=== PATIENT | male | born 1945 | race Caucasian/White ===

== ENCOUNTER 2021-10-24 20:40 | Emergency (ER) | payer MEDICARE ==
[2021-10-24] MEDS ORDERED: LIDOCAINE 1% 20 ML MDV ONE (21:08)
[2021-10-24] MEDS ORDERED: TETANUS & DIPHTHERIA TOX,ADULT 0.5 ML VIAL ONE (21:17)
--- NOTE | 2021-10-24 21:27 | ER ---
Nurse's Notes [facility] Name: Alexsander Eldridge Age: 76 yrs Sex: Male : 1945 Arrival Date: 10/24/2021 Time: 20:40 Bed 11 Private MD: Felix Hernandez E Diagnosis: Laceration without foreign body of right middle finger without damage to nail Presentation: 10/24 20:47 Chief complaint: Patient states: laceration to right middle finger. Coronavirus screen: da3 Vaccine status: Patient reports receiving the 2nd dose of the covid vaccine. Ebola Screen: No symptoms or risks identified at this time. Complicating Factors: blood thinner. Initial Sepsis Screen: Does the patient meet any 2 criteria? No. Patient's initial sepsis screen is negative. Does the patient have a suspected source of infection? No. Patient's initial sepsis screen is negative. Risk Assessment: Do you want to hurt yourself or someone else? Patient reports no desire to harm self or others. Onset of symptoms was October 24, 2021. 20:47 Method Of Arrival: Ambulatory da3 20:47 Acuity: MAGEN 3 da3 Triage Assessment: 20:50 General: Appears in no apparent distress. comfortable, Behavior is calm, cooperative. da3 Pain: Complains of pain in right hand Pain currently is 5 out of 10 on a pain scale. Injury Description: while pushing trash down into trash can finger sliced by can lid. 21:33 Injury Description: Laceration sustained to dorsal aspect of proximal phalanx of right lp1 middle finger is clean, 0.5 to 2.5 cm long. Historical: - Allergies: 20:50 Tetracycline; da3 - PMHx: 20:50 Hypertensive disorder; Hypercholesterolemia; cardiac stent; da3 - Immunization history:: Client reports receiving the 2nd dose of the Covid vaccine. - Social history:: Smoking status: Patient denies any tobacco usage or history of. Screenin:33 Abuse screen: Denies threats or abuse. Denies injuries from another. Nutritional lp1 screening: No deficits noted. Tuberculosis screening: No symptoms or risk factors identified. Fall Risk None identified. Assessment: 21:32 General: Appears in no apparent distress. Behavior is appropriate for age. Pain: lp1 Complains of pain in dorsal aspect of proximal phalanx of right middle finger. Neuro: No deficits noted. Cardiovascular: Patient's skin is warm and dry. Respiratory: Respiratory effort is even, unlabored. GI: No signs and/or symptoms were reported involving the gastrointestinal system. : No signs and/or symptoms were reported regarding the genitourinary system. EENT: No signs and/or symptoms were reported regarding the EENT system. Derm: Wound noted Other: Laceration to right middle finger. Musculoskeletal: Circulation, motion, and sensation intact. Range of motion: intact in all extremities. Vital Signs: 20:47 BP 179 / 93; Pulse 62; Resp 18; Temp 98.0; Pulse Ox 98.0% ; Weight 83.01 kg; Height 5 da3 ft. 9 in. (175.26 cm); 20:47 Body Mass Index 27.02 (83.01 kg, 175.26 cm) da3 ED Course: 20:40 Patient arrived in ED. es 20:41 Felix Hernandez MD is Private Physician. es 20:50 Triage completed. da3 20:50 Arm band placed on right wrist. da3 21:00 Heriberto Jerez PA is PHCP. jr8 21:00 Shaan Hurst MD is Attending Physician. jr8 21:01 Desiree De Los Santos, CECY is Primary Nurse. lp1 21:26 Felix Hernandez MD is Referral Physician. jr8 21:26 Assist provider with laceration repair on dorsal aspect of proximal phalanx of right lp1 middle finger that was 2.5 cm. or less using sutures. Set up tray. Performed by Heriberto GUEVARA Dressed with non-adherent pad with co-band. 21:33 Patient has correct armband on for positive identification. lp1 21:34 Patient did not have IV access during this emergency room visit. 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 Exp: lp1 03/24/2023. Lot #: [id number]. } Route: IM; Site: left deltoid; 21:36 Follow up: Response: Medication administered at discharge. lp1 Outcome: 21:26 Discharge ordered by . jr8 21:35 Discharged to home ambulatory. lp1 21:35 Condition: good 21:35 Discharge instructions given to patient, Instructed on discharge instructions, follow up and referral plans. wound care, Demonstrated understanding of instructions, follow-up care, wound care. 21:36 Patient left the ED. lp1 Signatures: Eileen Calderon Laura, RN RN lp1 Heriberto Jerez PA PA jr8 Javier Carrington RN RN da3
--- NOTE | 2021-10-24 21:27 | EDPHYS ---
Physician Documentation [facility] Name: Alexsander Eldridge Age: 76 yrs Sex: Male : 1945 Arrival Date: 10/24/2021 Time: 20:40 Bed 11 Private MD: Felix Hernandez E ED Physician Shaan Hurst HPI: 10/24 21:23 This 76 yrs old Male presents to ER via Ambulatory with complaints of Laceration, jr8 Finger Injury. 21:23 Is a 76-year-old male that presented to the emergency room after having a laceration to jr8 the right middle finger. Patient stated that he was pushing down garbage and cut his hand on a tin can lid. Denies any other trauma.. Historical: - Allergies: 20:50 Tetracycline; da3 - PMHx: 20:50 Hypertensive disorder; Hypercholesterolemia; cardiac stent; da3 - Immunization history:: Client reports receiving the 2nd dose of the Covid vaccine. - Social history:: Smoking status: Patient denies any tobacco usage or history of. ROS: 21:23 MS/extremity: Positive for laceration, pain, tenderness, Negative for decreased range jr8 of motion. 21:23 Skin: Positive for laceration(s). 21:23 All other systems are negative. Exam: 21:23 Constitutional: This is a well developed, well nourished patient who is awake, alert, jr8 and in no acute distress. Cardiovascular: Regular rate and rhythm with a normal S1 and S2. No gallops, murmurs, or rubs. Normal PMI, no JVD. No pulse deficits. Respiratory: Lungs have equal breath sounds bilaterally, clear to auscultation and percussion. No rales, rhonchi or wheezes noted. No increased work of breathing, no retractions or nasal flaring. MS/ Extremity: Pulses equal, no cyanosis. Neurovascular intact. Full, normal range of motion. Neuro: Awake and alert, GCS 15, oriented to person, place, time, and situation. Motor strength 5/5 in all extremities. Sensory grossly intact. 21:23 Skin: injury, laceration(s), the wound is approximately 3 cm(s), with a depth of .5 cm(s), of the right hand, that can be described as no foreign body, linear, with mild bleeding. Vital Signs: 20:47 BP 179 / 93; Pulse 62; Resp 18; Temp 98.0; Pulse Ox 98.0% ; Weight 83.01 kg; Height 5 da3 ft. 9 in. (175.26 cm); 20:47 Body Mass Index 27.02 (83.01 kg, 175.26 cm) da3 Laceration: 21:23 Wound Repair of 3cm ( 1.2in ) subcutaneous laceration to right middle finger. Distal jr8 neuro/vascular/tendon intact. Anesthesia: Digital block administered with 4 mls of 1% lidocaine. Wound prep: Extensive cleansing with hibiclenz, Wound irrigation with saline, Wound explored extensively. Skin closed with 4 4-0 Prolene using interrupted sutures and sterile technique. Patient tolerated well. MDM: 21:01 Patient medically screened. jr8 21:23 Data reviewed: vital signs, nurses notes, and as a result, I will discharge patient. jr8 Data interpreted: Pulse oximetry: on room air is 98 %. Interpretation: normal. Counseling: I had a detailed discussion with the patient and/or guardian regarding: the historical points, exam findings, and any diagnostic results supporting the discharge/admit diagnosis, the need for outpatient follow up, a family practitioner, to return to the emergency department if symptoms worsen or persist or if there are any questions or concerns that arise at home. 10/24 21:14 Order name: Dressing - Wound; Complete Time: 21:25 lp1 10/24 21:14 Order name: Gloves, Sterile; Complete Time: 21:14 lp1 10/24 21:14 Order name: Setup Suture Tray; Complete Time: 21:14 lp1 Administered Medications: 21:13 Drug: Lidocaine (1 %) 1 vials {Note: For laceration repair .} Volume: 20 ml; Route: lp1 Infiltration; 21:25 Drug: Tetanus-Diphtheria Toxoid Adult 0.5 ml {Environmental Technician: [employer]. Exp: lp1 03/24/2023. Lot #: [id number]. } Route: IM; Site: left deltoid; 21:36 Follow up: Response: Medication administered at discharge. lp1 Disposition: 22:46 Co-signature as Attending Physician, Shaan Hurst MD I agree with the assessment and elia plan of care. Disposition Summary: 10/24/21 21:26 Discharge Ordered Location: Home jr8 Problem: new jr8 Symptoms: have improved jr8 Condition: Stable jr8 Diagnosis - Laceration without foreign body of right middle finger without damage to nail jr8 Followup: jr8 - With: Felix Hernandez MD - When: 7 - 10 days - Reason: Wound Recheck, Recheck today's complaints, Continuance of care, Staple/Suture removal, Re-evaluation by your physician Discharge Instructions: - Discharge Summary Sheet jr8 - Laceration Care, Adult jr8 Forms: - Medication Reconciliation Form jr8 - Thank You Letter jr8 - Antibiotic Education jr8 - Prescription Opioid Use jr8 Signatures: Shaan Hurst MD MD cha Pena, Laura, RN RN lp1 Heriberto Jerez PA PA jr8 Javier Carrington RN RN da3
[2021-10-24 22:37] VITALS: BP 179/93; TEMP 98
== END 2021-10-24 21:36 | disposition home or self-care (01) ==
LOC: ER 20:40
PROC: 0JQJ0ZZ Repair Right Hand Subcutaneous Tissue and Fascia, Open Approach (ICD-10-PCS; principal; 2021-10-24)
DX: S61.212A Laceration without foreign body of right middle finger without damage to nail, initial encounter (principal); W26.9XXA Contact with unspecified sharp object(s), initial encounter; Y93.E9 Activity, other interior property and clothing maintenance; Z23 Encounter for immunization; Z88.1 Allergy status to other antibiotic agents; I10 Essential (primary) hypertension
CPT/HCPCS: 90471; 90714; 99283

== ENCOUNTER 2024-04-07 08:48 | Day surgery (SDC) | payer OTHER ==
[2024-04-07 09:33] VITALS: TEMP 97.6; BMI 26.6
[2024-04-07 10:21] LABS: PTT, Activated Partial Thromb 35.8 SECONDS (24.3-36.9); Protime INR 1.09
[2024-04-07 10:35] LABS: Albumin 3.6 g/dL (3.4-5.0); Albumin/Globulin Ratio 1.3 (1.1-1.8); Bilirubin Direct 0.2 mg/dL (0-0.2); Bilirubin Indirect, Calculated 0.4 mg/dL (0.2-0.8); Bilirubin Total 0.6 mg/dL (0.2-1.0); Globulin 2.8 g/dL (2.3-3.5); Protein, Total 6.4 g/dL (6.4-8.2)
[2024-04-07 13:57] LABS: CSF Glucose 69 mg/dL (40-70)
--- NOTE | 2024-04-07 14:54 | RAD REPORT ---
EXAM DESCRIPTION: RAD - Lumbar Puncture For Dx - 04/07/2024 12:27 pm CLINICAL HISTORY: Brain W/Wo Cont dated 03/04/2024 COMPARISON: None. TECHNIQUE: The procedure, risks and alternatives to the procedure were discussed with the patient in detail. After answering all questions, both oral and written consent were obtained. Time-out procedu re was performed. The patient was placed in an oblique prone position on the fluoroscopic table. The skin of the lower back was prepped and draped in the usual sterile fashion. After anesthetizing the skin and deeper sof t tissues with 1% lidocaine, a 22 gauge needle was advanced into the thecal sac at the right L4-5 lev el. Return of clear CSF was obtained. A total of 9.5 mL CSF were collected and sent to the lab as ordered . At the conclusion of the procedure the needle was withdrawn and a sterile bandage placed over the pun cture site. The patient tolerated the procedure well without immediate complications. Post-procedure care and precaution instructions were discussed with the patient before the LP procedure. Fluoroscopy time: 0.6 min Radiation dose: 36.68 mGy IMPRESSION: Successful fluoroscopic guided lumbar puncture. All obtained fluid was sent to the lab f or studies requested by the referring physician.
[2024-04-07 16:05] VITALS: BP 174/83; O2SAT 97
[2024-04-07 17:45] LABS: Appearance CLEAR (CLEAR); Body Fluid Source CSF; Color of Supernate Not Xanthochromic (Not Xantho); Color of fluid Colorless (COLORLESS); Tube # #4
[2024-04-07 17:47] LABS: Body Fluid WBC 1 /mm^3
== END 2024-04-07 14:26 | disposition home or self-care (01) ==
LOC: DS 08:48
PROVIDERS: ATTEND Psychiatry & Neurology Neurology with Special Qualifications in Child Neurology
PROC: 009U3ZX Drainage of Spinal Canal, Percutaneous Approach, Diagnostic (ICD-10-PCS; principal; 2024-04-07)
PROC: B01BZZZ Fluoroscopy of Spinal Cord (ICD-10-PCS; 2024-04-07)
DX: G31.84 Mild cognitive impairment of uncertain or unknown etiology (principal); I25.10 Atherosclerotic heart disease of native coronary artery without angina pectoris; I65.21 Occlusion and stenosis of right carotid artery; I10 Essential (primary) hypertension; I63.9 Cerebral infarction, unspecified
CPT/HCPCS: 36415; 77003; 80076; 82945; 84157; 85610; 85730; 89050

== ENCOUNTER 2024-07-14 11:00 | Day surgery (SDC) | payer OTHER ==
[2024-07-09 15:45] LABS: Absolute Basophils 0.1 K/uL (0-0.5); Absolute Eosinophils 0.2 K/uL (0-0.5); Absolute Lymphocytes (CBC) 1.7 K/uL (0.7-4.9); Absolute Monocytes 0.7 K/uL (0.1-1.3); Eosinophils % 4.1 % (0-4.4); Hematocrit 45.1 % (39.6-49.0); Hemoglobin 14.9 g/dL (13.6-17.9); Lymphocytes % 30.1 % (15.3-44.8); MCH 31.1 pg (27.0-35.0); MCHC 33.2 g/dL (32.0-36.0); MCV 93.8 fL (80-100); MPV 7.7 fL (7.6-11.3); Neutrophils % 52.8 % (41.7-73.7); Platelets 223 thou/uL (152-406); Red Cell Distribution Width 13.3 % (12.1-15.2)
[2024-07-09 15:48] LABS: PTT, Activated Partial Thromb 34.4 SECONDS (24.3-36.9); Protime INR 1.07
[2024-07-09 15:59] LABS: Anion Gap 8.7 mEq/L (5.0-15.0); Potassium 3.7 mEq/L (3.5-5.1)
--- NOTE | 2024-07-10 14:39 | EKG ---
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
[2024-07-14] MEDS ORDERED: NA CHLORIDE 0.9% 500 ML ONE (12:30)
[2024-07-14] MEDS ORDERED: LIDOCAINE 1% 20 ML MDV ONE (14:40)
[2024-07-14] MEDS ORDERED: MIDAZOLAM HCL 2 MG/2 ML INJ ONE (14:40)
[2024-07-14] MEDS ORDERED: ATROPINE SULF 1 MG/10 ML SYR IV ONE ×2 (14:40→16:19)
[2024-07-14] MEDS ORDERED: HEPA 1000U/500MLS 2,000 UNIT/1,000 ML BAG IV ONE (14:40)
[2024-07-14] MEDS ORDERED: HEPARIN 10,000 UNIT/10 ML VIAL IV ONE ×2 (14:40→16:20)
[2024-07-14] MEDS ORDERED: HEPARIN 5000 UNIT/ML 1 ML VIAL ONE (14:41)
[2024-07-14] MEDS ORDERED: CLOPIDOGREL 75 MG TABLET ONE ×2 (14:41→16:19)
[2024-07-14] MEDS ORDERED: TICAGRELOR 90 MG TABLET PO ONE ×2 (14:41→16:19)
[2024-07-14] MEDS ORDERED: ASPIRIN 325 MG TAB ONE ×2 (14:41→16:19)
[2024-07-14] MEDS ORDERED: FENTANYL CITR 100 MCG/2 ML ONE (14:41)
[2024-07-14] MEDS ORDERED: VERAPAMIL HCL 10 MG/4 ML VIAL IV ONE (14:42)
[2024-07-14 17:42] VITALS: TEMP 98.2
--- NOTE | 2024-07-14 18:03 | OP ---
Date of Procedure: 07/14/2024 Surgeon: JUAN DENIS Procedures Performed: 1.Selective coronary angiogram. 2.Left heart catheterization. 3.PCI of critical ostial left circumflex stenosis. I used a 3.5 x 12 mm Synergy drug-eluting stent. Indication: Unstable angina with abnormal stress test. Access: Right radial artery 6-Sami closed with TR band. Complications: None. Bleeding: Less than 50 mL. Anesthesia: Total sedation time was 1 hour. I used fentanyl and Versed. Description Of Procedure: After risks, benefits, and alternatives were explained, patient agreed to procedure and signed informed consent. Patient was brought into cardiac catheterization laboratory, prepped and draped in the usual sterile fashion. Then, I accessed right radial artery using Hypecal c micropuncture kit, placed a 6-Sami Slender sheath and took 5-Sami [place] 4.0 catheter over a J-w marquise into the aortic root, engaged the left main, took standard views, and then in the RCA and took st andard views and then the catheter was pushed over the wire into the LV, measured the LVEDP and pullb ack did not record any gradient. Then I gave systemic heparin to assure ACT level above 250, and kirstie guillen is already on aspirin and Plavix and he took them today. Took EBU 3.5 guide over a J-wire into the aortic root, engaged left main, took Runthrough wire into the left main and then the circ and wesley aliya it distally and I used a 3.0 Compliant balloon to pre-dilate. The lesion expanded very well and then I used 3.5 x 12 mm Synergy drug-eluting stent to cover the ostial and proximal left circumflex d isease, excellent result. Then, 0% residual stenosis and no complication. Wire was removed. Final angiogram was satisfactory and then the guide was removed and sheath was removed and placed TR band w ith good hemostasis. Findings: 1.Left main; very large and aneurysmal. There is mild distal left main disease about 20%, but it is a very large artery. 2.LAD has ostial 30% stenosis and then widely based patent proximal to mid LAD stent with 10% to 20% ISR and then diagonal branches appears to be without significant disease. Mid to distal LAD has foc al 50% stenosis. 3.Ramus intermedius; rather large vessel, has a proximal stent with 50% diffuse ISR. 4.Left circumflex; also large artery with ostial to proximal 99% stenosis, status post successful PC I as above. I used 3.5 x 12 mm Synergy drug-eluting stent to high pressure. 5.RCA; it is moderate to large size vessel. Has proximal to mid 30% to 40% stenosis and then mid fo benjamin 80% stenosis. 6.LVEDP is normal at 5 mmHg. 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 2.Severe mid RCA stenosis. We will plan to stage the PCI in about 4-6 weeks due to the chronic kidn ey disease and the maximum amount of contrast reached today. 3.Moderate coronary artery disease involving the LAD and ramus. Those can be evaluated with FFR onc e we do the RCA PCI. Plan: 1.Staged PCI of the RCA and FFR of the LAD to be done in 4-6 weeks due to the chronic kidney disease . 2.Baby aspirin and Plavix 75 mg and high-dose statin, and to follow up with me in the office in 1 we ek postdischarge. /CHRISTENL Voice ID: [id number] Report ID: [id number]
[2024-07-14 20:10] VITALS: O2SAT 98
[2024-07-14 20:31] VITALS: BP 131/65
== END 2024-07-14 20:31 | disposition home or self-care (01) ==
LOC: CCL 11:00
PROVIDERS: ATTEND Internal Medicine
DX: I25.110 Atherosclerotic heart disease of native coronary artery with unstable angina pectoris (principal); T82.855A Stenosis of coronary artery stent, initial encounter; I12.9 Hypertensive chronic kidney disease with stage 1 through stage 4 chronic kidney disease, or unspecified chronic kidney disease; N18.9 Chronic kidney disease, unspecified; I49.3 Ventricular premature depolarization; I44.7 Left bundle-branch block, unspecified; E78.5 Hyperlipidemia, unspecified; I65.22 Occlusion and stenosis of left carotid artery; I70.203 Unspecified atherosclerosis of native arteries of extremities, bilateral legs; Z87.891 Personal history of nicotine dependence; Z79.02 Long term (current) use of antithrombotics/antiplatelets; Z79.82 Long term (current) use of aspirin; Z79.899 Other long term (current) drug therapy; Z88.1 Allergy status to other antibiotic agents; Z88.5 Allergy status to narcotic agent
CPT/HCPCS: 93005; 85025; 80048; 36415; 85610; 85347; 85730; 93458; 76937; C1893; Q9967; C1725; C9600; J2001; J2250; J3010; J7040; 99152; 99153; J0461; J1644

== ENCOUNTER 2024-08-27 12:36 | Day surgery (SDC) | payer OTHER ==
[2024-08-24 15:20] LABS: Absolute Basophils 0.1 K/uL (0-0.5); Absolute Eosinophils 0.2 K/uL (0-0.5); Absolute Lymphocytes (CBC) 1.6 K/uL (0.7-4.9); Absolute Monocytes 0.6 K/uL (0.1-1.3); Absolute Neutrophil 3.5 K/uL (1.8-8.0); Basophils % 0.9 % (0-1.3); Eosinophils % 3.1 % (0-4.4); Hematocrit 45.1 % (39.6-49.0); Hemoglobin 15.7 g/dL (13.6-17.9); Lymphocytes % 26.6 % (15.3-44.8); MCH 32.3 pg (27.0-35.0); MCHC 34.7 g/dL (32.0-36.0); MCV 92.9 fL (80-100); MPV 7.4 fL (7.6-11.3); Monocytes % 10.4 % (3.3-12.3); Nucleated Red Blood Cells % 0.1 % (0-0); Platelets 192 thou/uL (152-406); RBC Red Blood Cell Count 4.86 M/uL (4.33-5.43); Red Cell Distribution Width 13.4 % (12.1-15.2)
[2024-08-24 15:30] LABS: Anion Gap 4.9 mEq/L (5.0-15.0); Potassium 3.9 mEq/L (3.5-5.1)
[2024-08-24 15:38] LABS: PTT, Activated Partial Thromb 38.8 SECONDS (24.3-36.9)
[2024-08-24 15:49] LABS: PT Prothrombin Time 11.7 SECONDS (9.4-12.5); Protime INR 1.05
--- NOTE | 2024-08-27 12:03 | EKG ---
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
[2024-08-27] MEDS: NA CHLORIDE 0.9% 500 ML ONE (13:15)
[2024-08-27] MEDS ORDERED: ATROPINE SULF 1 MG/10 ML SYR IV ONE (13:45)
[2024-08-27] MEDS ORDERED: HEPARIN 10,000 UNIT/10 ML VIAL IV ONE (13:45)
[2024-08-27] MEDS ORDERED: LIDOCAINE 1% 20 ML MDV ONE (13:45)
[2024-08-27] MEDS ORDERED: CLOPIDOGREL 75 MG TABLET ONE (13:45)
[2024-08-27] MEDS ORDERED: HEPA 1000U/500MLS 2,000 UNIT/1,000 ML BAG IV ONE (13:45)
[2024-08-27] MEDS ORDERED: HEPARIN 5000 UNIT/ML 1 ML VIAL ONE (13:45)
[2024-08-27] MEDS ORDERED: ASPIRIN 325 MG TAB ONE (13:46)
[2024-08-27] MEDS ORDERED: TICAGRELOR 90 MG TABLET PO ONE (13:46)
[2024-08-27] MEDS ORDERED: VERAPAMIL HCL 10 MG/4 ML VIAL IV ONE (13:46)
[2024-08-27] MEDS ORDERED: FENTANYL CITR 100 MCG/2 ML ONE (13:55)
[2024-08-27] MEDS ORDERED: MIDAZOLAM HCL 2 MG/2 ML INJ ONE (13:55)
[2024-08-27] MEDS ORDERED: REGADENOSON 0.4 MG/5 ML SYR IV ONE (14:11)
[2024-08-27 16:22] VITALS: TEMP 97.4
[2024-08-27 17:50] VITALS: O2SAT 98
[2024-08-27 18:24] VITALS: BP 144/54
== END 2024-08-27 18:26 | disposition home or self-care (01) ==
LOC: CCL 12:36
PROVIDERS: ATTEND Internal Medicine
DX: I25.10 Atherosclerotic heart disease of native coronary artery without angina pectoris (principal); I70.203 Unspecified atherosclerosis of native arteries of extremities, bilateral legs; I65.22 Occlusion and stenosis of left carotid artery; I10 Essential (primary) hypertension; E78.5 Hyperlipidemia, unspecified; R00.1 Bradycardia, unspecified; Z95.5 Presence of coronary angioplasty implant and graft; Z87.891 Personal history of nicotine dependence; Z79.82 Long term (current) use of aspirin; Z79.02 Long term (current) use of antithrombotics/antiplatelets; Z79.899 Other long term (current) drug therapy; Z88.1 Allergy status to other antibiotic agents; Z88.3 Allergy status to other anti-infective agents; Z88.5 Allergy status to narcotic agent
CPT/HCPCS: 36415; 76937; 80048; 85025; 85347; 85610; 85730; 92928; 93005; 93458; 99152; C1725; C1877; C1893; C9600; J0461; J1644; J2003; J2250; J2785; J3010; J7040; Q9967